=== PATIENT | female | born 1980 | race Two or more races ===

== ENCOUNTER 2023-08-22 10:21 | Emergency (ER) | payer OTHER ==
[~2023-08-22] VITALS: Ht 175.3 cm; Wt 83.9 kg
[~2023-08-22 10:21] MED LIST: CLONAZEPAM2 MG
[2023-08-22] MEDS ORDERED: [UNRECOGNIZED DRUG - REMARK] (11:03)
[2023-08-22] MEDS ORDERED: CLONAZEPAM2 M1 PO (11:05)
[2023-08-22] MEDS ORDERED: CEFTRIAXONE SODIUM 2,000 MG VIAL IM ONE (11:45)
[2023-08-22] MEDS ORDERED: KETOROLAC TROMETHAMINE 60 MG VIAL IM ONE (11:45)
[2023-08-22 14:15] LABS: HEMATOCRIT 39.8 % (36.0-45.00); HEMOGLOBIN 13.1 g/dL (12.0-15.00); MEAN CORPUSCULAR HEMOGLOBIN 27.9 pg (27.00-32.0); MEAN CORPUSCULAR HGB CONC 32.9 g/dl (32.0-36.0); PLATELET COUNT 257 K/uL (150-450); RED BLOOD COUNT 4.68 M/uL (4.00-6.00); RED CELL DISTRIBUTION WIDTH 15.1 % (11.5-14.5)
[2023-08-22 14:41] LABS: ALBUMIN 4.1 gm/dL (3.4-5.0); BILIRUBIN TOTAL 0.34 mg/dL (0.3-1.2); CALCIUM 9.9 mg/dL (8.5-10.1); CREATININE SERUM 0.74 mg/dL (0.55-1.02); GFR 86.49; GLOBULINA 3.9 G/DL (2.4-3.5); POTASSIUM 3.39 mEq/L (3.5-5.1)
== END 2023-08-22 16:35 | disposition home or self-care (01) ==
LOC: ER 10:22
PROVIDERS: General Practice
DX: K02.9 Dental caries, unspecified (principal); K08.89 Other specified disorders of teeth and supporting structures; F84.0 Autistic disorder; Z88.8 Allergy status to other drugs, medicaments and biological substances